=== PATIENT | female | born 1950 | race Caucasian/White ===

== ENCOUNTER → 2020-08-18 | Outpatient (CLI) | payer MEDICARE ==
[~2020-08-18] MED LIST: ASPI325 PO; CALCIUM + D3 E1 EACH PO; LATA.005SO RIGHTEYE; LEVO.5OPSO RIGHTEYE
== END | disposition home or self-care (01) ==
LOC: PLD 08:03 → LAB SHORT 08:03
DX: L57.0 Actinic keratosis (principal)
CPT/HCPCS: 88305

== ENCOUNTER → 2023-06-05 | Outpatient (CLI) | payer MEDICARE | LOC: LAB SHORT 11:59 → LAB 11:59 → PLD 11:59 | DX: L57.0 Actinic keratosis (principal); B07.9 Viral wart, unspecified | CPT/HCPCS: 88305 ==

== ENCOUNTER 2023-09-12 06:55 | Day surgery (SDC) | payer MEDICARE ==
[~2023-09-12] VITALS: Ht 165.1 cm; Wt 57.6 kg
[2023-09-12] MEDS ORDERED: TOCO1000 (07:14)
[2023-09-12] MEDS ORDERED: GINKGO60 MG (07:14)
[2023-09-12] MEDS ORDERED: FISH OIL 1,0001 EA10 (07:14)
[2023-09-12] MEDS ORDERED: FOLIC ACID0.4 MG (07:14)
[2023-09-12] MEDS ORDERED: FLAX (07:14)
[2023-09-12] MEDS ORDERED: CURCUMIN PHYTO500 MG (07:14)
[2023-09-12] MEDS ORDERED: Vitamin C100 M1 (07:15)
[2023-09-12] MEDS ORDERED: MAGCHL64ER (07:15)
[2023-09-12] MEDS ORDERED: Vitamin B-12100 MCG (07:15)
[2023-09-12] MEDS ORDERED: ERGO400 (07:15)
[2023-09-12] MEDS ORDERED: IRON18 MG (07:16)
[2023-09-12] MEDS ORDERED: ZINC15 (07:16)
[2023-09-12] MEDS ORDERED: MERIBIN5 MG (07:16)
[2023-09-12 08:36] VITALS: BP 110/75
== END 2023-09-12 08:40 | disposition home or self-care (01) ==
LOC: ORSCSDS 06:55
PROVIDERS: Surgery
PROC: 0DJD8ZZ Inspection of Lower Intestinal Tract, Via Natural or Artificial Opening Endoscopic (ICD-10-PCS; principal; 2023-09-12 08:00)
DX: Z12.11 Encounter for screening for malignant neoplasm of colon (principal); Z86.010 Personal history of colon polyps; K57.30 Diverticulosis of large intestine without perforation or abscess without bleeding; Z79.82 Long term (current) use of aspirin; Z79.899 Other long term (current) drug therapy
CPT/HCPCS: J2704; J7120